=== PATIENT | female | born 1960 | race African-American/Black ===

== ENCOUNTER 2018-09-30 15:45 | Emergency (ER) | payer OTHER ==
[~2018-09-30] VITALS: Ht 160 cm; Wt 106.1 kg
[~2018-09-30 15:45] MED LIST: ASA81 MG PO; ASPIRIN81 M2; AZITHROMYCIN500 MG; CELEBREX100 MG; FOLIC ACID1 MG; FORTAMET500 MG/BOT PO; GABAPENTIN300 MG PO; HUMALOG MIX 50/53 M1; HUMALOG100 U/ML SQ; HYZAAR 100/25 T1 TAB; HYZAAR 50/12.51 TAB PO; JANUMET 50-1,1 UDTAB; LASIX20 MG; METFORMIN HCL1000 MG; METHOTREXATE25 MG/M2; PREDNISONE IN5 MG/ML; PREMARIN1.25 MG; SYNTHROID100 MCG PO; SYNTHROID137 MCG; SYNTHROID175 MCG; TUSNEL LIQUID3840 ML; VITAMIN D50000 UNIT PO
[2018-09-30] MEDS ORDERED: ORENCIA125 MG/1 M (15:59)
== END 2018-09-30 19:56 | disposition home or self-care (01) ==
LOC: ER 15:45
DX: G50.1 Atypical facial pain (principal)

== ENCOUNTER 2019-01-22 10:17 | Emergency (ER) | payer OTHER ==
[~2019-01-22] VITALS: Ht 160 cm; Wt 106.6 kg
[~2019-01-22 10:17] MED LIST changes: +ORENCIA125 MG/1 M
[2019-01-22] MEDS ORDERED: JARDIANCE10 MG (10:31)
[2019-01-22] MEDS ORDERED: ASA-EC81 MG (10:32)
[2019-01-22] MEDS ORDERED: NORVASC5 MG (10:32)
[2019-01-22] MEDS ORDERED: MICROZIDE12.5 MG (10:32)
[2019-01-22] MEDS ORDERED: FOLIC ACID1 MG (10:33)
[2019-01-22] MEDS ORDERED: ATORVASTATIN CA20 MG (10:33)
[2019-01-22] MEDS ORDERED: METHOTREXA25 MG/1 M5 (10:33)
[2019-01-22] MEDS ORDERED: NEURONTIN300 MG (10:33)
[2019-01-22] MEDS ORDERED: EC-NAPROSYN500 MG (10:33)
[2019-01-22] MEDS ORDERED: SYNTHROID175 MCG (10:34)
[2019-01-22] MEDS ORDERED: HUMALOG MI100 UNIT/2 (10:34)
== END 2019-01-22 13:00 | disposition home or self-care (01) ==
LOC: ER 10:17
DX: K58.9 Irritable bowel syndrome, unspecified (principal); D72.0 Genetic anomalies of leukocytes

== ENCOUNTER 2020-01-21 17:08 | Emergency (ER) | payer OTHER ==
[~2020-01-21] VITALS: Ht 160 cm; Wt 104.3 kg
[~2020-01-21 17:08] MED LIST changes: +ASA-EC81 MG; +ATORVASTATIN CA20 MG; +EC-NAPROSYN500 MG; +HUMALOG MI100 UNIT/2; +JARDIANCE10 MG; +METHOTREXA25 MG/1 M5; +MICROZIDE12.5 MG; +NEURONTIN300 MG; +NORVASC5 MG
== END 2020-01-21 21:12 | disposition home or self-care (01) ==
LOC: ER 17:08
DX: S39.012A Strain of muscle, fascia and tendon of lower back, initial encounter (principal); X50.9XXA Other and unspecified overexertion or strenuous movements or postures, initial encounter; Y93.89 Activity, other specified; Y92.89 Other specified places as the place of occurrence of the external cause; Y99.8 Other external cause status

== ENCOUNTER 2020-12-13 17:35 | Emergency (ER) | payer OTHER ==
[~2020-12-13] VITALS: Ht 160 cm; Wt 93.0 kg
== END 2020-12-13 21:33 | disposition home or self-care (01) ==
LOC: ER 17:35
DX: M62.838 Other muscle spasm (principal)

== ENCOUNTER 2021-03-31 08:00 | Outpatient (CLI) | payer OTHER | END 2021-03-31 09:00 | disposition home or self-care (01) | LOC: PPH VACUNA 08:00 | PROVIDERS: ATTEND Emergency Medicine Pediatric Emergency Medicine | DX: Z23 Encounter for immunization (principal) ==

== ENCOUNTER 2021-08-03 18:27 | Emergency (ER) | payer OTHER ==
[~2021-08-03] VITALS: Ht 152.4 cm; Wt 74.8 kg
== END 2021-08-03 22:30 | disposition home or self-care (01) ==
LOC: ER 18:27
DX: B34.9 Viral infection, unspecified (principal)

== ENCOUNTER 2021-08-05 21:19 | Emergency (ER) | payer OTHER ==
[~2021-08-05] VITALS: Ht 160 cm; Wt 74.8 kg
== END 2021-08-06 01:21 | disposition home or self-care (01) ==
LOC: ER 21:19
DX: T78.40XA Allergy, unspecified, initial encounter (principal)

== ENCOUNTER 2021-12-05 09:54 | Emergency (ER) | payer OTHER ==
[~2021-12-05] VITALS: Ht 160 cm; Wt 73.5 kg
[2021-12-05] MEDS ORDERED: TREXALL5 MG PO (10:05)
[2021-12-05] MEDS ORDERED: TRULICITY1.5 MG/0.5 (10:06)
[2021-12-05] MEDS ORDERED: OSTERA TABLET1 EACH (10:06)
[2021-12-05] MEDS ORDERED: GLUMETZA500 MG (10:06)
[2021-12-05] MEDS ORDERED: MONTELUKAST SODI4 M1 PO (10:06)
[2021-12-05] MEDS ORDERED: ORENCIA125 MG/1 M (10:07)
== END 2021-12-05 14:26 | disposition home or self-care (01) ==
LOC: ER 09:54
DX: R07.89 Other chest pain (principal); E78.00 Pure hypercholesterolemia, unspecified; E05.90 Thyrotoxicosis, unspecified without thyrotoxic crisis or storm; J45.909 Unspecified asthma, uncomplicated; E11.9 Type 2 diabetes mellitus without complications; Z79.84 Long term (current) use of oral hypoglycemic drugs

== ENCOUNTER 2021-12-22 11:13 | Emergency (ER) | payer OTHER ==
[~2021-12-22] VITALS: Ht 160 cm; Wt 75.7 kg
[~2021-12-22 11:13] MED LIST changes: +GLUMETZA500 MG; +MONTELUKAST SODI4 M1 PO; +OSTERA TABLET1 EACH; +TREXALL5 MG PO; +TRULICITY1.5 MG/0.5
== END 2021-12-22 18:05 | disposition home or self-care (01) ==
LOC: ER 11:13
DX: B34.9 Viral infection, unspecified (principal); R07.89 Other chest pain; M25.512 Pain in left shoulder; R10.13 Epigastric pain; E11.9 Type 2 diabetes mellitus without complications; G47.39 Other sleep apnea; M19.90 Unspecified osteoarthritis, unspecified site; Z79.82 Long term (current) use of aspirin; Z79.84 Long term (current) use of oral hypoglycemic drugs

== ENCOUNTER 2022-05-09 16:10 | Emergency (ER) | payer OTHER ==
[~2022-05-09] VITALS: Ht 160 cm; Wt 76.7 kg
[2022-05-09] MEDS ORDERED: CELEBREX200MG PO (19:41)
== END 2022-05-09 20:38 | disposition home or self-care (01) ==
LOC: ER 16:10
DX: M25.461 Effusion, right knee (principal)

== ENCOUNTER 2022-10-09 08:18 | Emergency (ER) | payer OTHER ==
[~2022-10-09] VITALS: Ht 165.1 cm; Wt 81.6 kg
[~2022-10-09 08:18] MED LIST changes: +CELEBREX200MG PO
== END 2022-10-09 11:58 | disposition home or self-care (01) ==
LOC: ER 08:18
DX: S83.8X1A Sprain of other specified parts of right knee, initial encounter (principal); W18.39XA Other fall on same level, initial encounter; Y93.89 Activity, other specified; Y92.69 Other specified industrial and construction area as the place of occurrence of the external cause; Y99.8 Other external cause status

== ENCOUNTER 2023-01-10 16:11 | Emergency (ER) | payer OTHER ==
[~2023-01-10] VITALS: Ht 160 cm; Wt 81.6 kg
== END 2023-01-10 20:06 | disposition home or self-care (01) ==
LOC: ER 16:11
DX: T78.3XXA Angioneurotic edema, initial encounter (principal); Y92.89 Other specified places as the place of occurrence of the external cause; E11.9 Type 2 diabetes mellitus without complications; Z79.84 Long term (current) use of oral hypoglycemic drugs

== ENCOUNTER 2023-08-25 21:00 | Emergency (ER) | payer OTHER ==
[~2023-08-25] VITALS: Ht 160 cm; Wt 83.9 kg
[2023-08-25] MEDS ORDERED: SINGULAIR10 MG (21:21)
[2023-08-25] MEDS ORDERED: TREXALL7.5 MG (21:26)
[2023-08-25] MEDS ORDERED: AZITHROMYCIN 500 MG TABLET PO ONE (21:30)
[2023-08-25] MEDS ORDERED: GUAIFENESIN/DEXTROMETHORPHAN 100 MG/5 ML ML PO ONE (21:30)
[2023-08-25 21:46] LABS: HEMATOCRIT 33.6 % (36.0-45.00); HEMOGLOBIN 11.4 g/dL (12.0-15.00); MEAN CELL VOLUME 85.5 fL (80.00-100.00); MEAN CORPUSCULAR HEMOGLOBIN 29.1 pg (27.00-32.0); PLATELET COUNT 284 K/uL (150-450); RED BLOOD COUNT 3.93 M/uL (4.00-6.00); RED CELL DISTRIBUTION WIDTH 15.5 % (11.5-14.5)
[2023-08-25] MEDS ORDERED: ZITHROMAX500 MG PO (22:32)
[2023-08-25] MEDS ORDERED: TUSNEL LIQUID178 ML PO (22:32)
== END 2023-08-25 22:46 | disposition home or self-care (01) ==
LOC: ER 21:00
PROVIDERS: General Practice
DX: B34.9 Viral infection, unspecified (principal); E11.9 Type 2 diabetes mellitus without complications; Z79.84 Long term (current) use of oral hypoglycemic drugs; I10 Essential (primary) hypertension

== ENCOUNTER 2024-05-15 19:55 | Emergency (ER) | payer OTHER ==
[~2024-05-15] VITALS: Ht 160 cm; Wt 83.9 kg
[~2024-05-15 19:55] MED LIST changes: +SINGULAIR10 MG; +TREXALL7.5 MG; +TUSNEL LIQUID178 ML PO; +ZITHROMAX500 MG PO
[2024-05-15] MEDS ORDERED: DIPHENHYDRAMINE HCL 50 MG/ML VIAL 1ML IV ONE (20:45)
[2024-05-15] MEDS ORDERED: METHYLPREDNISOLONE SOD SUCC 40 MG VIAL IV ONE (20:45)
[2024-05-15 21:54] LABS: HEMATOCRIT 35.7 % (36.0-45.00); MEAN CELL VOLUME 87.3 fL (80.00-100.00); MEAN CORPUSCULAR HEMOGLOBIN 29.3 pg (27.00-32.0); MEAN CORPUSCULAR HGB CONC 33.6 g/dl (32.0-36.0); PLATELET COUNT 311 K/uL (150-450); RED BLOOD COUNT 4.09 M/uL (4.00-6.00); RED CELL DISTRIBUTION WIDTH 14.8 % (11.5-14.5)
[2024-05-15 22:06] LABS: ALBUMIN 3.5 gm/dL (3.4-5.0); BILIRUBIN TOTAL 0.33 mg/dL (0.3-1.2); CALCIUM 9.9 mg/dL (8.5-10.1); CREATININE SERUM 0.84 mg/dL (0.55-1.02); GFR 68.48; POTASSIUM 4.1 mEq/L (3.5-5.1); TOTAL PROTEIN 7.5 gm/dL (6.4-8.2)
[2024-05-15 22:07] LABS: C-REACTIVE PROTEIN 0.48 MG/DL (0.00-0.29)
[2024-05-15 22:11] LABS: ERYTHROCYTE SEDIMENTATION RATE 56 mm/hr
[2024-05-15 22:19] LABS: PARTIAL THROMBOPLASTIN TIME 25.1 SECONDS (22.0-34.0); PROTHROMBIN TIME 10.9 SECONDS (9.0-11.5)
[2024-05-16] MEDS ORDERED: ALLEGRA ALLERG180 MG PO (02:32)
== END 2024-05-16 02:43 ==
LOC: ER 19:57
PROVIDERS: General Practice
DX: T78.3XXA Angioneurotic edema, initial encounter (principal); M19.90 Unspecified osteoarthritis, unspecified site; J45.909 Unspecified asthma, uncomplicated; E11.9 Type 2 diabetes mellitus without complications; Z79.84 Long term (current) use of oral hypoglycemic drugs

== ENCOUNTER 2024-06-05 15:14 | Emergency (ER) | payer OTHER ==
[~2024-06-05] VITALS: Ht 160 cm; Wt 83.9 kg
[~2024-06-05 15:14] MED LIST changes: +ALLEGRA ALLERG180 MG PO
[2024-06-05] MEDS ORDERED: SYNTHROID112 MCG (15:37)
[2024-06-05] MEDS ORDERED: JANUMET 50-1,01 EACH (15:37)
[2024-06-05 18:11] LABS: HEMATOCRIT 36.9 % (36.0-45.00); MEAN CELL VOLUME 88.6 fL (80.00-100.00); MEAN CORPUSCULAR HEMOGLOBIN 28.8 pg (27.00-32.0); MEAN CORPUSCULAR HGB CONC 32.5 g/dl (32.0-36.0); PLATELET COUNT 250 K/uL (150-450); RED BLOOD COUNT 4.17 M/uL (4.00-6.00)
[2024-06-05] MEDS ORDERED: PAXLOVID 150-11 EAC1 PO (20:36)
[2024-06-05] MEDS ORDERED: ACETAMINOPHEN500 M1 PO (20:36)
[2024-06-05] MEDS ORDERED: GILTUSS COUGH-118 M1 PO (20:36)
== END 2024-06-05 20:43 | disposition home or self-care (01) ==
LOC: ER 15:17
PROVIDERS: Preventive Medicine Public Health & General Preventive Medicine
DX: U07.1 COVID-19 (principal); E11.9 Type 2 diabetes mellitus without complications; Z79.84 Long term (current) use of oral hypoglycemic drugs; E03.9 Hypothyroidism, unspecified; Z87.09 Personal history of other diseases of the respiratory system

== ENCOUNTER 2024-06-16 10:11 | Inpatient (IN) | payer OTHER ==
[~2024-06-16] VITALS: Ht 160 cm; Wt 184.6 kg
[~2024-06-16 10:11] MED LIST changes: +ACETAMINOPHEN500 M1 PO; +GILTUSS COUGH-118 M1 PO; +JANUMET 50-1,01 EACH; +PAXLOVID 150-11 EAC1 PO; +SYNTHROID112 MCG
[2024-06-16] MEDS ORDERED: ECOTRIN81 MG (10:37)
[2024-06-16] MEDS ORDERED: FOLIC ACID20 MG (10:37)
[2024-06-16] MEDS ORDERED: LIPITOR20 MG PO (10:38)
[2024-06-16 12:31] LABS: HEMATOCRIT 36.9 % (36.0-45.00); MEAN CELL VOLUME 88.8 fL (80.00-100.00); MEAN CORPUSCULAR HEMOGLOBIN 28.9 pg (27.00-32.0); MEAN CORPUSCULAR HGB CONC 32.5 g/dl (32.0-36.0); PLATELET COUNT 316 K/uL (150-450); RED BLOOD COUNT 4.15 M/uL (4.00-6.00); RED CELL DISTRIBUTION WIDTH 14.8 % (11.5-14.5)
[2024-06-16 12:59] LABS: CALCIUM 9.4 mg/dL (8.5-10.1); CREATININE SERUM 0.82 mg/dL (0.55-1.02); GFR 70.41; POTASSIUM 5.15 mEq/L (3.5-5.1)
[2024-06-16] MEDS ORDERED: levoFLOXacin IN DEXTROSE 5 % 5 MG/ML PIGGYBAG IV ONE (14:15)
[2024-06-16 16:13] LABS: URINE BILIRRUBIN Negative (NEGATIVE); URINE BLOOD Negative; URINE COLOR Dark Yellow; URINE LEUKOCYTE Negative; URINE NITRATE Negative; URINE PROTEIN 30 (NEGATIVE)
[2024-06-16 16:47] LABS: URINE BACTERIA 390.4 uL (0.0-1933); URINE EPITHELIAL CELLS 42.9 uL (0.0-38.8); URINE RBC 35.9 uL (0.0-20.8); URINE WBC 43.6 uL (0.0-23.2)
[2024-06-16 17:07] LABS: URINE CAST 1.32 uL (0.0-1.40); URINE GLUCOSE >=1000 MG/DL (NEGATIVE); URINE KETONE 40 (NEGATIVE); URINE YEAST FEW /hpf
[2024-06-16 18:54] LABS: ABG PH 7.409 (7.35-7.45); ABG PO2 94.3 mmHg (80-100); ABG pCO2 34.3 mmHg (35-45); BASE EXCESS -2.6 mmol/l; BICARBONATE 21.2 mmol/l (23-25); SaO2 97.3 %; Tco2 22.3 mmol/l
[2024-06-16 18:55] LABS: allen test SATISFACTORY; o2 21 %; puncture site RADIAL LEFT
[2024-06-16] MEDS ORDERED: CEFTRIAXONE SODIUM 2,000 MG in 0.9 % SODIUM CHLORIDE 100 ML IV SCH (19:25)
[2024-06-16] MEDS ORDERED: ACETAMINOPHEN 325 MG TABLET PO PRN (19:30)
[2024-06-16] MEDS ORDERED: 0.9 % SODIUM CHLORIDE 1,000 ML IV SCH (19:30)
[2024-06-16] MEDS ORDERED: LEVALBUTEROL HCL 0.63 MG/3 ML SOLUTION IH SCH (19:49)
[2024-06-16] MEDS ORDERED: ATORVASTATIN CALCIUM 20 MG TABLET PO SCH (19:52)
[2024-06-16] MEDS ORDERED: INSULIN LISPRO 1,000 UNIT/10 ML UNITS SUBCUTANEO PRN (20:00)
[2024-06-16] MEDS ORDERED: DEXTROSE 50 % IN WATER 0.5 G/ML DISP.SYRIN IV PRN (20:00)
[2024-06-16] MEDS ORDERED: LOSARTAN POTASSIUM 25 MG TABLET PO SCH (20:03)
[2024-06-16] MEDS ORDERED: ASPIRIN 81 MG TABLET.EC PO SCH (20:06)
[2024-06-16] MEDS ORDERED: ACETAMINOPHEN 500 MG GEL..CAP PO ONE (20:15)
[2024-06-16 21:33] LABS: URINE APPEARANCE CLEAR
[2024-06-16] MEDS ORDERED: CEFTRIAXONE SODIUM 2,000 MG VIAL ONE (22:04)
[2024-06-16 22:46] VITALS: BP 110/72; O2SAT 100
[2024-06-17 03:54] LABS: D DIMER 2.53 MG/L; INR 1.05; PARTIAL THROMBOPLASTIN TIME 25.8 SECONDS (22.0-34.0); PROTHROMBIN TIME 11.4 SECONDS (9.0-11.5)
[2024-06-17 03:58] LABS: ALBUMIN 3.1 gm/dL (3.4-5.0); BILIRUBIN TOTAL 0.42 mg/dL (0.3-1.2); CALCIUM 9.3 mg/dL (8.5-10.1); CREATININE SERUM 0.73 mg/dL (0.55-1.02); GFR 80.52; GLOBULINA 4.7 G/DL (2.4-3.5); POTASSIUM 3.96 mEq/L (3.5-5.1); TOTAL PROTEIN 7.8 gm/dL (6.4-8.2)
[2024-06-17 04:41] LABS: C-REACTIVE PROTEIN 18.8 MG/DL (0.00-0.29)
[2024-06-17 05:26] VITALS: BP 106/72; O2SAT 100
[2024-06-17 06:29] LABS: HEMATOCRIT 35.5 % (36.0-45.00); HEMOGLOBIN 11.7 g/dL (12.0-15.00); MEAN CELL VOLUME 87.6 fL (80.00-100.00); MEAN CORPUSCULAR HEMOGLOBIN 28.9 pg (27.00-32.0); PLATELET COUNT 324 K/uL (150-450); RED BLOOD COUNT 4.06 M/uL (4.00-6.00); RED CELL DISTRIBUTION WIDTH 15.2 % (11.5-14.5)
[2024-06-17] MEDS ORDERED: ACETAMINOPHEN 500 MG GEL..CAP PO PRN (06:45)
[2024-06-17 08:29] VITALS: BP 102/63; O2SAT 100
[2024-06-17 15:58] VITALS: BP 111/61; O2SAT 97
[2024-06-18] VITALS: BP 125/60; O2SAT 100
[2024-06-18 07:26] LABS: HEMATOCRIT 37.6 % (36.0-45.00); HEMOGLOBIN 12.3 g/dL (12.0-15.00); MEAN CELL VOLUME 88.8 fL (80.00-100.00); MEAN CORPUSCULAR HGB CONC 32.7 g/dl (32.0-36.0); PLATELET COUNT 307 K/uL (150-450); RED BLOOD COUNT 4.24 M/uL (4.00-6.00); RED CELL DISTRIBUTION WIDTH 14.8 % (11.5-14.5)
[2024-06-18 08:45] VITALS: BP 110/71; O2SAT 100
== END 2024-06-18 11:30 | disposition home or self-care (01) | DRG 195 ==
LOC: ER 10:14 → SEC-K 19:56 → SURG 19:56
PROVIDERS: General Practice; ADMIT Student in an Organized Health Care Education/Training Program; ATTEND Student in an Organized Health Care Education/Training Program
PROC: 3E0F7GC Introduction of Other Therapeutic Substance into Respiratory Tract, Via Natural or Artificial Opening (ICD-10-PCS; principal; 2024-06-17)
DX: J18.9 Pneumonia, unspecified organism (principal); D72.828 Other elevated white blood cell count; E11.9 Type 2 diabetes mellitus without complications; Z79.4 Long term (current) use of insulin

== ENCOUNTER 2025-03-13 19:51 | Emergency (ER) | payer OTHER ==
[~2025-03-13] VITALS: Ht 160 cm; Wt 83.0 kg
[~2025-03-13 19:51] MED LIST changes: +ECOTRIN81 MG; +FOLIC ACID20 MG; +LIPITOR20 MG PO
[2025-03-13] MEDS ORDERED: METHYLPREDNISOLONE SOD SUCC 125 MG VIAL IV ONE (21:00)
[2025-03-13] MEDS ORDERED: FAMOTIDINE/PF 20 MG/2 ML VIAL IV ONE (21:00)
[2025-03-13] MEDS ORDERED: DIPHENHYDRAMINE HCL 50 MG/ML VIAL 1ML IM ONE (21:00)
[2025-03-13] MEDS ORDERED: METHYLPREDNISOLONE SOD SUCC 125 MG VIAL ONE (21:32)
[2025-03-13] MEDS ORDERED: FAMOTIDINE/PF 20 MG/2 ML VIAL ONE (21:32)
[2025-03-13] MEDS ORDERED: DIPHENHYDRAMINE HCL 50 MG/ML VIAL 1ML ONE (21:32)
[2025-03-13 22:01] LABS: BASO % 0.4 % (0.1-1.2); EOS # 0.30 (0.04-0.54); EOS % 5.5 % (0.7-7.0); LYMPH # 2.18 (1.18-3.74); LYMPH % 39.7 % (19.3-53.1); MEAN PLATELET VOLUME 10.00 fl (9.4-12.4); MONO # 0.56 (0.24-0.82); MONO % 10.2 % (4.7-12.5); NEUT # 2.42 (1.56-6.13); NEUT % 44.0 % (34.0-71.1); RED CELL DISTRIBUTION WIDTH 13.2 % (11.6-14.4)
[2025-03-13 22:27] LABS: ALT/SGPT 22.0 U/L (12-78); AST/SGOT 16.0 U/L (15-37); BILIRUBIN TOTAL 0.26 mg/dL (0.3-1.2); BUN CREA RATIO 16.0 (7.0-25.0); CREATININE SERUM 1.05 mg/dL (0.55-1.02); GFR 52.76; GLOBULINA 3.8 G/DL (2.4-3.5); GLUCOSE FASTING 117.0 mg/dL (65-100); OSMOLALITY SERUM 286.0 MOSM/KG (275-295)
[2025-03-13] MEDS ORDERED: BENADRYL ALLERG25 MG PO (22:36)
[2025-03-13] MEDS ORDERED: ALL DAY ALLERGY10 M3 PO (22:36)
== END 2025-03-13 22:41 | disposition home or self-care (01) ==
LOC: ER 19:52
DX: R22.0 Localized swelling, mass and lump, head (principal); E11.9 Type 2 diabetes mellitus without complications; Z79.84 Long term (current) use of oral hypoglycemic drugs; E03.9 Hypothyroidism, unspecified; Z87.09 Personal history of other diseases of the respiratory system